=== PATIENT | male | born 1955 | race American Indian/Alaskan Native ===

== ENCOUNTER 2020-08-07 21:22 | Emergency (ER) | payer OTHER ==
[2020-08-07 21:35] VITALS: BP 177/91
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
--- NOTE | 2020-08-07 22:22 | XRay Report ---
. LUMBAR SPINE 3 VIEWS INDICATION / CLINICAL INFORMATION: MAIN. COMPARISON: None available. FINDINGS: VERTEBRAE: No acute fracture. Mild (grade 1) anterolisthesis of L4 on L5. DISC SPACES / FACET JOINTS:Intervertebral disc spaces are satisfactorily maintained throughout the olive mbar spine. Mild facet degenerative arthrosis is present at the lower lumbar spine. PARASPINAL SOFT TISSUES:No significant abnormality. ADDITIONAL FINDINGS: None. Signer Name: Scottie Patel MD Signed: 08/07/2020 10:17 PM Workstation Name: [id number]
== END 2020-08-07 23:07 | disposition home or self-care (01) ==
LOC: ED 21:22
DX: M54.5 Low back pain (principal); I10 Essential (primary) hypertension; Z79.899 Other long term (current) drug therapy; V49.59XA Passenger injured in collision with other motor vehicles in traffic accident, initial encounter; Y92.410 Unspecified street and highway as the place of occurrence of the external cause; Y93.89 Activity, other specified; Y99.8 Other external cause status
CPT/HCPCS: 72100

== ENCOUNTER 2021-02-19 08:35 | Day surgery (SDC) | payer BC, OTHER ==
[2021-02-19] MEDS ORDERED: HYDROmorphone 1 MG/1 ML INJ IV PRN ×2 (09:46)
--- NOTE | 2021-02-19 09:47 | Anesthesia Day of Surgery ---
Anesthesia Day of Surgery - Day of Surgery Patient Examined: Yes Patient H&P Reviewed: Yes Patient is NPO: Yes Cardiac Clearance: Yes
[2021-02-19] MEDS ORDERED: LIDOCAINE MPF (2%) 20 MG/1 ML VIAL 5 ML ONE (09:48)
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
[2021-02-19] MEDS ORDERED: fentaNYL 100 MCG/2 ML INJ ONE (09:49)
[2021-02-19] MEDS ORDERED: propofoL 200 MG/20 ML VIAL IV ONE ×3 (09:49→09:55)
[2021-02-19] MEDS ORDERED: LACTATED RINGERS 1,000 ML IV SCH (10:00)
[2021-02-19] MEDS ORDERED: ONDANSETRON 4 MG/2 ML INJ IV PRN (10:00)
[2021-02-19] MEDS ORDERED: MIDAZOLAM 2 MG/2 ML INJ IV NR (10:00)
[2021-02-19] MEDS ORDERED: ceFAZolin/Water 2 GM/20 ML 2 GM/20 ML SYRINGE IV ONE (10:25)
--- NOTE | 2021-02-19 10:37 | Post Operative Note ---
Pre-op diagnosis: Elevated PSA Post-op diagnosis: same Procedure: Transrectal ultrasound-guided prostate needle biopsy Anesthesia: MAC Surgeon: HELEN BELLA Estimated blood loss: none Pathology: list (Prostate needle biopsies) Specimen disposition: to lab Condition: stable Disposition: PACU
[2021-02-19] MEDS ORDERED: ePHEDrine SULFATE 50 MG/1 ML INJ ONE (10:50)
[2021-02-19] MEDS ORDERED: KETAMINE/STERILE WATER 50 MG/ML SYRINGE ONE (10:50)
[2021-02-19] MEDS ORDERED: ceFAZolin/STERILE WATER 2 GM/20 ML SYRINGE IV NR (11:00)
--- NOTE | 2021-02-19 11:35 | Ultrasound Report ---
Ultrasound Transrectal INDICATION / CLINICAL INFORMATION: ELEVATED PSA TECHNIQUE: Intraoperative sonographic images were obtained during the procedure. FINDINGS: Intraoperative sonographic images for prostate biopsy. Prostate volume is 52 cm3. See operative/procedure note by performing physician for full details. Number of Ultrasound Images: 6. Signer Name: Camilo Pearson MD Signed: 02/19/2021 11:30 AM Workstation Name: [id number]
[2021-02-19 11:51] VITALS: BP 145/90
--- NOTE | 2021-02-19 15:11 | Post Anesthesia Evaluation ---
- Post Anesthesia Evaluation Patient Participated: Yes Airway Patent: Yes Stable Respiratory Function: Yes Nausea/Vomiting: No Temp > 96.8F: Yes Pain Manageable: Yes Adequeate Hydration: Yes Anesthesia Complications: No Block Receding Appropriately: Not Applicable Patient on Ventilator: No
--- NOTE | 2021-02-27 17:16 | Operative Report ---
DATE OF SURGERY: 02/19/2021 PREOPERATIVE DIAGNOSIS: Elevated PSA. POSTOPERATIVE DIAGNOSIS: Elevated PSA. OPERATIVE PROCEDURE: Transrectal ultrasound of the prostate with a transrectal ultrasound-guided prostate needle biopsy. ATTENDING: Tacho Diego M.D. ANESTHESIA: MAC. SPECIMENS: 12 prostate needle biopsies. ESTIMATED BLOOD LOSS: 15 mL. COMPLICATIONS: None. DRAINS: None. INDICATIONS FOR PROCEDURE: The patient is a 65-year-old man with elevated PSA. DESCRIPTION OF PROCEDURE: After induction of suitable sedation, the patient was positioned and prepared in the dorsal lithotomy position. A probe was used to enter the bladder and prostatic measurements were performed. Please see the ultrasound report for more detail. Once the diagnostic portion of the ultrasound was performed, 12 sequential biopsies were taken comprising the right and left base, mid and apex of the patient's prostate. These were sales and marketing representative biopsies. The biopsies were taken with a combination of sagittal and transverse views. At the completion of the procedure, the ultrasound probe was removed. The patient was then awakened from sedation and transferred to the recovery room in stable condition. He tolerated the procedure well. He will follow up in 7-10 days to review his pathology results. TID: [id number] RECEIPT: [id number] HOANG/JEANETH
== END 2021-02-19 12:43 | disposition home or self-care (01) ==
LOC: OR 08:35
PROVIDERS: ATTEND Urology
DX: R97.20 Elevated prostate specific antigen [PSA] (principal); I10 Essential (primary) hypertension; F17.210 Nicotine dependence, cigarettes, uncomplicated; Z79.899 Other long term (current) drug therapy; Z98.890 Other specified postprocedural states
CPT/HCPCS: 55700; 76872; 88305; 88344; J0690; J2250; J2704; J3010; J3490; J7120